=== PATIENT | male | born 1985 | race Caucasian/White ===

== ENCOUNTER 2017-08-16 08:36 | Emergency (ER) | payer OTHER ==
[~2017-08-16] VITALS: Ht 190.5 cm; Wt 127.3 kg
[2017-08-16 08:42] VITALS: BP 148/108
[2017-08-16 10:45] LABS: EOSINOPHIL (%) 1.1 % (0-5); EOSINOPHIL COUNT 0.1 K/uL (0-0.3); HEMATOCRIT 41.1 % (38.0-50.0); IMMATURE GRANULOCYTE (%) 0.4 % (0.0-0.7); INSTRUMENT ABS NEUTROPHIL CT 2.7 K/uL; LYMPHOCYTE COUNT 1.6 K/uL (1.0-2.8); MCH 29.3 PG (29.0-34.0); MCHC 35.5 G/DL (30.0-36.0); MCV 82.5 FL (86-99); MEAN PLAT.VOLUME 9.5 uM^3 (9.0-12.4); MONOCYTE (%) 8.4 % (3-12); MONOCYTE COUNT 0.4 K/uL (0-0.8); NEUTROPHIL (%) 55.9 % (45-76); NEUTROPHIL COUNT 2.7 K/uL (1.8-6.4); PLATELET COUNT 298 K/uL (156-360); RBC DIS.WIDTH-CV 11.9 % (11.8-14.6); RBC DIS.WIDTH-SD 35.7 % (39-53); RED BLOOD COUNT 4.98 M/uL (4.00-5.50); WHITE BLOOD COUNT 4.8 K/uL (4.1-10.2)
[2017-08-16 10:53] LABS: CHLORIDE 107 mEq/L (99-109); POTASSIUM 4.4 mEq/L (3.7-5.4); SODIUM 141 mEq/L (136-147)
[2017-08-16 10:56] LABS: GLUCOSE 104 mg/dL (70-99)
[2017-08-16 10:57] LABS: ANION GAP 7 MEQ/L (2-14)
[2017-08-16 10:58] LABS: TOTAL BILIRUBIN 0.6 mg/dL (0.0-1.0)
[2017-08-16 10:59] LABS: ALKALINE PHOSPHATASE 44 IU/L (3-129)
[2017-08-16 11:00] LABS: GFR ESTIMATE (CALCULATED) > 59 mL/min/
[2017-08-16 11:01] LABS: DIRECT BILIRUBIN 0.2 mg/dL (0.0-0.3); UREA NITROGEN (BUN) 9 mg/dL (9-23)
[2017-08-16 11:41] LABS: ANTI-HEPATITIS B CORE (TOTAL) Nonreactive; HBCT INDEX 0.12
[2017-08-16 11:42] LABS: AHBS INDEX 944.61; HPCA INDEX 0.14
[2017-08-16 11:43] LABS: HEPATITIS B SURFACE ANTIBODY REACTIVE; HIV INDEX 0.09; HIV-1/2 AB/AG COMBO Nonreactive
== END 2017-08-16 11:24 | disposition home or self-care (01) ==
LOC: EME 08:36
PROVIDERS: Nurse Practitioner Family
DX: Z77.21 Contact with and (suspected) exposure to potentially hazardous body fluids (principal); Y99.0 Civilian activity done for income or pay
CPT/HCPCS: 80053; 82248; 84100; 85025; 86703; 86704; 86706; 86803; 99281; 99283